=== PATIENT | female | born 1955 | race Two or more races ===

== ENCOUNTER → 2022-10-08 | Outpatient (CLI) | payer OTHER ==
[2022-10-08 08:59] LABS: Basophils # (auto) 0 10 ^3/uL (0-0.2); Basophils % (auto) 0.4 % (0.0-2.0); Eosinophils # (auto) 0.1 10 ^3/uL (0-0.8); Eosinophils % (auto) 1.2 % (0.0-7.0); Hematocrit 39.2 % (36.0-46.0); Hemoglobin 13.1 g/dL (12.2-16.2); Lymphocytes # (auto) 2.7 10 ^3/uL (0.4-5.4); Lymphocytes % (auto) 42.9 % (10.0-50.0); Mean Corpuscular Hemoglobin 30.5 pg (28.0-32.0); Mean Corpuscular Hgb Conc. 33.5 g/dL (32.0-36.0); Mean Corpuscular Volume 90.9 fL (80.0-100.0); Monocytes # (auto) 0.4 10 ^3/uL (0-1.3); Monocytes % (auto) 6.4 % (0.0-12.0); Neutrophils # (auto) 3.1 10 ^3/uL (1.6-8.6); Neutrophils % (auto) 49.1 % (37.0-80.0); Nucleated Red Blood Cells % 0.1 %; Red Blood Cells 4.31 10^6/uL (4.0-5.20); Red Cell Distribution Width 13.5 % (11.8-14.3); White Blood Cell 6.3 10^3/uL (4.4-10.8)
[2022-10-08 09:04] LABS: Urine Bacteria NONE SEEN /hpf (None Seen); Urine Blood Negative /uL (Negative); Urine Specific Gravity 1.014 (1.001-1.035); Urine WBC <1 /hpf (0 - 5)
[2022-10-08 09:20] LABS: Albumin 3.9 g/dL (3.4-5.0); Potassium 4.9 mmol/L (3.5-5.1)
[2022-10-08 09:28] LABS: BUN/Creatinine Ratio 26.8 (10.0-20.0); Bilirubin, Total 0.6 mg/dL (0.2-1.0); Calcium 9.2 mg/dL (8.5-10.1); Total Protein 7.4 g/dL (6.4-8.2)
== END | disposition home or self-care (01) ==
LOC: LAB 08:27
PROVIDERS: ATTEND Student in an Organized Health Care Education/Training Program
DX: I10 Essential (primary) hypertension (principal); R73.9 Hyperglycemia, unspecified; E03.8 Other specified hypothyroidism
CPT/HCPCS: 36415; 80053; 80061; 81001; 83036; 84439; 84443; 85025

== ENCOUNTER → 2023-01-07 | Outpatient (CLI) | payer MEDICARE, MEDICAID ==
[2023-01-07 08:55] LABS: Urine Bacteria NONE SEEN /hpf (None Seen); Urine Blood Negative /uL (Negative); Urine Clarity Clear (Clear); Urine Color Yellow (Yellow); Urine Hyaline Cast FEW /lpf (0 - 2); Urine Mucus FEW (None Seen); Urine Protein, UAD TRACE (Negative); Urine Specific Gravity 1.025 (1.001-1.035); Urine Urobilinogen Normal (Negative); Urine WBC 1 /hpf (0 - 5); Urine pH 5.5 (5.0-8.0)
[2023-01-07 10:01] LABS: Creatinine, Urine 190.69 mg/dL (30.0-125.0)
[2023-01-07 10:03] LABS: Alanine Aminotransferase 31 U/L (7-40); Albumin 4.6 g/dL (3.2-4.8); Alkaline Phosphatase 92 U/L (46-116); Anion Gap 5 (5-15); Aspartate Aminotransferase 20 U/L (13-40); BUN/Creatinine Ratio 17.5 (10.0-20.0); Bilirubin, Total 0.8 mg/dL (0.2-1.0); Blood Urea Nitrogen 14 mg/dL (9-23); Calcium 9.7 mg/dL (8.5-10.1); Carbon Dioxide 30 mmol/L (20-30); Chloride 104 mmol/L (98-107); Cholesterol 220 mg/dL (< 200); Glucose 105 mg/dL (74-106); HDL Cholesterol 48 mg/dL (40-59); LDL Cholesterol 150 mg/dL (< 100); Potassium 3.9 mmol/L (3.5-5.1); Sodium 139 mmol/L (136-145); Total Protein 7.5 g/dL (5.7-8.2); Triglycerides 130 mg/dL (< 150)
== END | disposition home or self-care (01) ==
LOC: LAB 08:26
PROVIDERS: ATTEND Student in an Organized Health Care Education/Training Program
DX: E11.9 Type 2 diabetes mellitus without complications (principal); I10 Essential (primary) hypertension; E03.8 Other specified hypothyroidism
CPT/HCPCS: 36415; 80053; 80061; 81001; 82043; 82570; 83036; 84439; 84443

== ENCOUNTER 2023-06-24 08:56 | Emergency (ER) | payer MEDICAID ==
[~2023-06-24] VITALS: Ht 152.4 cm; Wt 74.5 kg
[2023-06-24] MEDS: amLODIPine BESYLATE 5 MG TAB PO ONE (09:34)
[2023-06-24 10:27] VITALS: BP 148/92; PULSE 77; RESP 16; TEMP 97.7; O2SAT 98
== END 2023-06-24 10:31 | disposition home or self-care (01) ==
LOC: ER 08:56
DX: I10 Essential (primary) hypertension (principal); E03.9 Hypothyroidism, unspecified

== ENCOUNTER 2023-07-26 13:27 | Emergency (ER) | payer MEDICAID ==
[~2023-07-26] VITALS: Ht 154.9 cm; Wt 74.1 kg
[2023-07-26 13:40] VITALS: TEMP 97.8
[2023-07-26 13:44] VITALS: BP 177/86; PULSE 67; RESP 14; O2SAT 98
[2023-07-26] MEDS: PROPARACAINE HCL 0.5% OPTH(EYE) SOL 15ML OP ONE (20:09)
== END 2023-07-26 20:41 | disposition home or self-care (01) ==
LOC: ER 13:27
DX: H43.392 Other vitreous opacities, left eye (principal); H53.8 Other visual disturbances; I10 Essential (primary) hypertension

== ENCOUNTER → 2024-02-09 | Outpatient (CLI) | payer MEDICAID ==
[2024-02-09 07:57] LABS: Creatinine, Urine 68.62 mg/dL (30.0-125.0)
== END | disposition home or self-care (01) ==
LOC: LAB 07:22
PROVIDERS: ATTEND Student in an Organized Health Care Education/Training Program
DX: I10 Essential (primary) hypertension (principal); E11.9 Type 2 diabetes mellitus without complications
CPT/HCPCS: 36415; 82043; 82570

== ENCOUNTER → 2024-02-22 | Outpatient (CLI) | payer MEDICAID ==
[2024-02-22 08:53] LABS: Chloride 107 mmol/L (98-107); Potassium 4.5 mmol/L (3.5-5.1); Sodium 140 mmol/L (136-145)
[2024-02-22 08:54] LABS: Anion Gap 5 (5-15); Carbon Dioxide 28 mmol/L (20-31)
[2024-02-22 08:55] LABS: Calcium 10.2 mg/dL (8.7-10.4)
[2024-02-22 08:59] LABS: BUN/Creatinine Ratio 16.2 (10.0-20.0); Blood Urea Nitrogen 12 mg/dL (9-23); Glucose 99 mg/dL (74-106)
[2024-02-22 10:15] LABS: Creatinine, Urine 33.77 mg/dL (30.0-125.0)
[2024-02-22 10:18] LABS: Micro Albumin < 3.0 mg/L (<30.0)
== END | disposition home or self-care (01) ==
LOC: LAB 08:16
PROVIDERS: ATTEND Student in an Organized Health Care Education/Training Program
DX: I10 Essential (primary) hypertension (principal); E11.9 Type 2 diabetes mellitus without complications; E03.8 Other specified hypothyroidism
CPT/HCPCS: 36415; 80048; 82043; 82570; 83036; 84439; 84443

== ENCOUNTER → 2024-06-06 | Outpatient (CLI) | payer MEDICAID ==
[2024-06-06 08:12] LABS: Urine Bacteria None Seen /hpf (None Seen)
[2024-06-06 08:24] LABS: Basophils # (auto) 0 10 ^3/uL (0-0.2); Basophils % (auto) 0.4 % (0.0-2.0); Eosinophils # (auto) 0.1 10 ^3/uL (0-0.8); Eosinophils % (auto) 0.9 % (0.0-7.0); Hematocrit 39.1 % (36.0-46.0); Hemoglobin 12.9 g/dL (12.2-16.2); Lymphocytes # (auto) 2.5 10 ^3/uL (0.4-5.4); Mean Corpuscular Hemoglobin 30.6 pg (28.0-32.0); Mean Corpuscular Volume 92.6 fL (80.0-100.0); Monocytes # (auto) 0.4 10 ^3/uL (0-1.3); Monocytes % (auto) 6.1 % (0.0-12.0); Neutrophils # (auto) 3.3 10 ^3/uL (1.6-8.6); Neutrophils % (auto) 52.6 % (37.0-80.0); Platelet Count (auto) 329 10^3/uL (140-450); Red Blood Cells 4.22 10^6/uL (4.0-5.20); Red Cell Distribution Width 13.9 % (11.8-14.3); White Blood Cell 6.2 10^3/uL (4.4-10.8)
[2024-06-06 08:40] LABS: Urine Blood Negative /uL (Negative); Urine Clarity Clear (Clear); Urine Color Light-Yellow (Yellow); Urine Hyaline Cast FEW /lpf (0 - 2); Urine Protein, UAD Negative (Negative); Urine Specific Gravity 1.014 (1.001-1.035); Urine Squamous Epithelial Cell None Seen /hpf (<5); Urine Urobilinogen Normal (Negative); Urine WBC < 1 /HPF (0-5); Urine pH 6.5 (5.0-9.0)
[2024-06-06 08:47] LABS: Alanine Aminotransferase 24 U/L (7-40); Alkaline Phosphatase 104 U/L (46-116); Anion Gap 8 (5-15); BUN/Creatinine Ratio 21.9 (10.0-20.0); Blood Urea Nitrogen 16 mg/dL (9-23); Calcium 10.2 mg/dL (8.7-10.4); Carbon Dioxide 28 mmol/L (20-31); Chloride 105 mmol/L (98-107); Glucose 102 mg/dL (74-106); Potassium 4.2 mmol/L (3.5-5.1); Sodium 141 mmol/L (136-145)
[2024-06-06 08:48] LABS: Aspartate Aminotransferase 19 U/L (13-40)
[2024-06-06 08:49] LABS: Albumin 4.7 g/dL (3.2-4.8); Bilirubin, Total 0.6 mg/dL (0.2-1.0); Total Protein 7.1 g/dL (5.7-8.2)
[2024-06-07 12:56] LABS: HDL Cholesterol 52 mg/dL (40-59)
[2024-06-07 12:57] LABS: Cholesterol 217 mg/dL (< 200); LDL Cholesterol 151 mg/dL (< 100); Triglycerides 154 mg/dL (< 150)
[2024-06-07 13:00] LABS: Creatinine, Urine 59.53 mg/dL (30.0-125.0)
[2024-06-07 13:04] LABS: Micro Albumin < 3.0 mg/L (<30.0)
== END | disposition home or self-care (01) ==
LOC: LAB 08:00
PROVIDERS: ATTEND Student in an Organized Health Care Education/Training Program
DX: I10 Essential (primary) hypertension (principal); E11.9 Type 2 diabetes mellitus without complications; E03.8 Other specified hypothyroidism
CPT/HCPCS: 36415; 80053; 80061; 81001; 82043; 82570; 83036; 84439; 84443; 85025

== ENCOUNTER 2024-07-26 07:27 | Day surgery (SDC) | payer MEDICAID ==
[2024-07-24 15:09] LABS: Basophils # (auto) 0 10 ^3/uL (0-0.2); Basophils % (auto) 0.7 % (0.0-2.0); Eosinophils # (auto) 0.1 10 ^3/uL (0-0.8); Eosinophils % (auto) 1.3 % (0.0-7.0); Hematocrit 39.7 % (36.0-46.0); Hemoglobin 13.1 g/dL (12.2-16.2); Lymphocytes % (auto) 42.9 % (10.0-50.0); Mean Corpuscular Hemoglobin 30.6 pg (28.0-32.0); Mean Corpuscular Hgb Conc. 32.9 g/dL (32.0-36.0); Mean Corpuscular Volume 92.8 fL (80.0-100.0); Monocytes # (auto) 0.5 10 ^3/uL (0-1.3); Monocytes % (auto) 7.6 % (0.0-12.0); Neutrophils # (auto) 3.3 10 ^3/uL (1.6-8.6); Neutrophils % (auto) 47.5 % (37.0-80.0); Platelet Count (auto) 309 10^3/uL (140-450); Red Blood Cells 4.28 10^6/uL (4.0-5.20)
[2024-07-24 15:23] LABS: INR 0.97 (0.9-1.15); Partial Thromboplastin Time 29.2 SEC (24.5-34.5); Prothrombin Time 10.3 sec (9.3-11.8)
[2024-07-24 17:02] LABS: Alanine Aminotransferase 20 U/L (7-40); Alkaline Phosphatase 100 U/L (46-116); Anion Gap 7 (5-15); Aspartate Aminotransferase 15 U/L (13-40); BUN/Creatinine Ratio 15.7 (10.0-20.0); Blood Urea Nitrogen 13 mg/dL (9-23); Calcium 9.9 mg/dL (8.7-10.4); Carbon Dioxide 27 mmol/L (20-31); Glucose 98 mg/dL (74-106); Potassium 4.1 mmol/L (3.5-5.1); Sodium 142 mmol/L (136-145); Total Protein 7.9 g/dL (5.7-8.2)
[2024-07-24 17:03] LABS: Albumin 4.9 g/dL (3.2-4.8); Bilirubin, Total 0.4 mg/dL (0.2-1.0); Chloride 108 mmol/L (98-107)
[~2024-07-26] VITALS: Ht 152.4 cm; Wt 65.3 kg
[~2024-07-26 07:27] MED LIST: AMLO1TAB23 PO; ATOR20TA PO; LEVO75TA6 PO; LOSA-535 PO
[2024-07-26] MEDS ORDERED: FLUMAZENIL 0.1 MG/ML INJ 10ML MDV IV ONE (07:33)
[2024-07-26] MEDS ORDERED: NALOXONE HCL 0.4 MG/ML VIAL ONE (07:33)
[2024-07-26] MEDS ORDERED: SODIUM CHLORIDE LOCK 10 ML ONE (07:33)
[2024-07-26] MEDS: fentaNYL CITRATE 100 MCG/2 ML VL ONE (08:29)
[2024-07-26] MEDS: MIDAZOLAM HCL 5 MG/ML-1ML VIAL ONE (08:29)
[2024-07-26] MEDS: diphenhdrAMINE HCL 50 MG/1 ML VL ONE (08:34)
[2024-07-26 08:58] VITALS: TEMP 97.3; O2SAT 100
--- NOTE | 2024-07-26 09:43 | DVHOP2 ---
Operative Report DATE OF PROCEDURE: 07/26/24 INDICATIONS FOR THE PROCEDURE: Colon cancer screening PROCEDURE PERFORMED: Colonoscopy and polypectomy by cold biopsy forceps Colonoscopy and biopsy of the mildly inflamed sigmoid by cold biopsy forceps POSTOPERATIVE DIAGNOSIS: Small distal sigmoid polyp removed by cold biopsy forceps Extensive diverticulosis of the whole colon right and left Mild nonspecific sigmoiditis of the midsigmoid biopsies taken with cold biopsy forceps Internal hemorrhoids INFORMED CONSENT: The risks and benefits and alternatives were explained to the patient and informed consent was obtained. PROCEDURE IN DETAIL: The patient was kept NPO after midnight. Conscious sedation was accomplished with 4. mg Versed and 100 mcg of fentanyl and 50 mg of Benadryl Olympus colonoscope was passed through the rectum all the way up to cecum and the terminal ileum The terminal ileum Cecum, ascending colon, hepatic flexure, transverse colon, splenic flexure, descending colon, and sigmoid colon were all visualized and the findings were as follows: Findings: Terminal ileum was normal Cecum ascending colon transverse colon descending colon well visualized there were quite a few diverticula seen colon especially in the ascending colon as well as descending and sigmoid colons. In the midsigmoid there was a small polyp of about 5 mm removed with the help of the biopsy forceps cold biopsy forceps. There were erythematous streaks in the sigmoid suggestive of mild nonspecific sigmoiditis and biopsies were taken with the cold biopsy forceps in the rectum were internal hemorrhoids seen without gross blood ENDOSCOPIC IMPRESSION: Small distal sigmoid polyp removed by cold biopsy forceps Extensive diverticulosis of the whole colon right and left Mild nonspecific sigmoiditis of the midsigmoid biopsies taken with cold biopsy forceps Internal hemorrhoids SUGGESTIONS: Await the histology of the polyps Await the biopsy results Symptomatic treatment for diverticulosis and hemorrhoids In view of the polyp seen we will recommend repeat colon in five years Thank you Dr. Nicholson Copy of the dictation Dr. Eastman and Dr. Nicholson please SAMANTHA NICHOLSON MD Jul 26, 2024 09:43
[2024-07-26 09:55] VITALS: BP 148/87; PULSE 55; RESP 12; O2SAT 97
== END 2024-07-26 10:18 | disposition home or self-care (01) ==
LOC: GI 07:27
PROVIDERS: ATTEND Internal Medicine Gastroenterology
DX: Z12.11 Encounter for screening for malignant neoplasm of colon (principal); K63.5 Polyp of colon; K57.30 Diverticulosis of large intestine without perforation or abscess without bleeding; K52.89 Other specified noninfective gastroenteritis and colitis; K64.8 Other hemorrhoids; Z79.890 Hormone replacement therapy; Z79.899 Other long term (current) drug therapy; Z98.890 Other specified postprocedural states
CPT/HCPCS: 36415; 45380; 80053; 85025; 85610; 85730; 88305; J1200; J2250; J3010; J7030; 99152; 99153

== ENCOUNTER 2025-01-16 08:25 | Outpatient (CLI) | payer MEDICAID ==
[2025-01-16 10:23] LABS: Microalb/Creat Ratio, Urine 18.00
[2025-01-16 10:28] LABS: Alanine Aminotransferase 33 U/L (7-40); Alkaline Phosphatase 100 U/L (46-116); Anion Gap 9 (5-15); BUN/Creatinine Ratio 16.9 (10.0-20.0); Blood Urea Nitrogen 13 mg/dL (9-23); Calcium 9.4 mg/dL (8.7-10.4); Carbon Dioxide 26 mmol/L (20-31); Chloride 105 mmol/L (98-107); Glucose 94 mg/dL (74-106); Potassium 3.9 mmol/L (3.5-5.1); Sodium 140 mmol/L (136-145)
[2025-01-16 10:29] LABS: Albumin 4.4 g/dL (3.2-4.8); Total Protein 7.4 g/dL (5.7-8.2)
[2025-01-16 10:30] LABS: Bilirubin, Total 0.4 mg/dL (0.2-1.0); Cholesterol 190 mg/dL (< 200); HDL Cholesterol 43 mg/dL (40-59)
[2025-01-16 10:35] LABS: Triglycerides 161 mg/dL (< 150)
== END 2025-01-16 17:00 | disposition home or self-care (01) ==
LOC: LAB 08:25
PROVIDERS: ATTEND Student in an Organized Health Care Education/Training Program
DX: E11.9 Type 2 diabetes mellitus without complications (principal); E78.5 Hyperlipidemia, unspecified
CPT/HCPCS: 36415; 80053; 80061; 82043; 82570; 83036

== ENCOUNTER 2025-01-18 10:35 | Outpatient (CLI) | payer MEDICAID ==
--- NOTE | 2025-01-18 12:18 | DVH ---
US US GUIDANCE FOR NEEDLE PLACEME, HISTORY: RIGHT UPPER BACK/SHOULDER MASS PROCEDURE: Informed consent was obtained. The patient was positioned prone on the table, and limited US was performed of the right upper back. The skin overlying the biopsy site was prepped with chlorh exidine which was allowed to dry. Time out was performed. The entry site was anesthetized with 1% lid ocaine. A 18 gauge Biopince needle was advanced into the mass. Multiple core biopsy samples were obta ined using the 18 gauge biopsy needle. The samples were sent to formalin to pathology for analysis. No immediate complication was identified. FINDINGS: Palpable echogenic right upper back mass. Intra-procedural images show the biopsy needle at the lesion. No significant post biopsy hemorrhage is identified. IMPRESSION: US-guided biopsy of palpable echogenic right upper back mass . Pathology results pending.
== END 2025-01-18 17:00 | disposition home or self-care (01) ==
LOC: US 10:35
PROVIDERS: ATTEND Surgery
DX: R22.31 Localized swelling, mass and lump, right upper limb (principal); D21.9 Benign neoplasm of connective and other soft tissue, unspecified; Z79.899 Other long term (current) drug therapy
CPT/HCPCS: 20206; 76942